=== PATIENT | female | born 1960 | race American Indian/Alaskan Native ===

== ENCOUNTER 2019-09-16 08:06 | Day surgery (SDC) | payer OTHER ==
[~2019-09-16 08:06] MED LIST: SODIUM CHLORIDE 0.9% 1000 ML 1,000 ML IV SCH
--- NOTE | 2019-09-16 08:47 | Anesthesia Day of Surgery ---
Anesthesia Day of Surgery - Day of Surgery Patient Examined: Yes Patient H&P Reviewed: Yes Patient is NPO: Yes Beta Blockers: Yes
--- NOTE | 2019-09-16 08:47 | Anesthesia Consultation ---
Anesthesia Consult and Med Hx Date of service: 09/16/19 - Airway Anesthetic Teeth Evaluation: Good ROM Head & Neck: Adequate Mental/Hyoid Distance: Adequate Mallampati Class: Class II Intubation Access Assessment: Probably Good - Pre-Operative Health Status ASA Pre-Surgery Classification: ASA3 Proposed Anesthetic Plan: MAC - Pulmonary Hx Smoking: No Hx Asthma: No Hx Respiratory Symptoms: No SOB: No COPD: No Home Oxygen Therapy: No Hx Pneumonia: No Hx Sleep Apnea: No - Cardiovascular System Hx Hypertension: Yes Hx Coronary Artery Disease: No Hx Heart Attack/AMI: No Hx Angina: No Hx Percutaneous Transluminal Coronary Angioplasty (PTCA): No Hx Cardia Arrhythmia: No Hx Pacemaker: No Hx Internal Defibrillator: No Hx Valvular Heart Disease: No Hx Heart Murmur: No Hx Peripheral Vascular Disease: No - Central Nervous System Hx Neuromuscular Disorder: No Hx Seizures: No CVA: No Hx Back Pain: No Hx Psychiatric Problems: Yes (anexity) - Gastrointestinal Hx Ulcer: No Hx Gastroesophageal Reflux Disease: No - Endocrine Hx Renal Disease: No Hx End Stage Renal Disease: No Hx Cirrhosis: No Hx Liver Disease: No Hx Insulin Dependent Diabetes: No Hx Non-Insulin Dependent Diabetes: Yes Hx Thyroid Disease: No Hx Hypothyroidism: No Hx Hyperthyroidism: No - Hematic Hx Anemia: No Hx Sickle Cell Disease: No - Other Systems Hx Alcohol Use: No Hx Substance Use: No Hx Cancer: No Hx Obesity: Yes
[2019-09-16] MEDS ORDERED: LIDOCAINE MPF (2%) 20 MG/1 ML VIAL 5 ML ONE (09:00)
--- NOTE | 2019-09-16 09:19 | History and Physical Report ---
HISTORY OF PRESENT ILLNESS: This is a 59-year-old female with a prior history of a gastric sleeve bypass done in 2018, who has an underlying history of diabetes mellitus type 2 as well as anxiety disorder, who has come for evaluation for a colonoscopy as part of colon polyp screening. She gives no prior history of any colonoscopy. ALLERGIES: No known allergies. SOCIAL HISTORY: Denies history of smoking or alcohol use. She has had her flu shots. No cardiac issues. PHYSICAL EXAMINATION: VITAL SIGNS: She is afebrile. Blood pressure 138/72, pulse is 79, height is 5 feet 4 inches, weight is 241 pounds. HEENT: Shows no JVD. LUNGS: Clear to auscultation. CARDIOVASCULAR: Normal. ABDOMEN: Soft. Bowel sounds present. NEUROLOGIC: She is alert and oriented. ASSESSMENT: Colon polyp screening, diabetes mellitus type 2, anxiety disorder, history of gastric sleeve done in 2018. PLAN: To do a colonoscopy at [facility] on 09/16/2018 and the patient is to use the [facility]. JOB# [id number] KJ/NTS
--- NOTE | 2019-09-16 09:41 | Procedure Note ---
Date of procedure: 09/16/19 Pre-op diagnosis: Colon Polyp Screening Post-op diagnosis: other (Solitary,Descending Colon Polyp (Snare Excised)/ Normal,Internal Hemorrhoid/ Normal, Ileal Mucosa) Procedure: Colonoscopy with Hot Snare Polypectomy Anesthesia: MAC Surgeon: GINNA SILVEIRA Estimated blood loss: minimal Pathology: list Specimen disposition: to lab Condition: stable Disposition: same day (Avoid aspirin and NSAID for 4 days; otherwise resume home medication. Follow up in 1 to 2weeks ([phone]).)
--- NOTE | 2019-09-16 09:45 | Operative Report ---
PROCEDURE: Colonoscopy. INDICATIONS: The patient is a 59-year-old -[place] female with an underlying history of diabetes mellitus type 2, hypertension, status post gastric sleeve in 2018. She underwent a colonoscopy as part of colon polyp screening. This is a first colonoscopy. DESCRIPTION OF PROCEDURE: Procedure was done after getting informed consent with MAC anesthesia. Initial rectal exam was unremarkable. Instrument was passed through the rectum onto the cecum, which was identified with ileocecal valve and the appendiceal orifice. Visualization was fair to good. The terminal ileum was intubated showed normal mucosa. The cecum was also examined on the retroverted view, which did not show any additional pathology. Cecum, ascending colon, transverse colon showed normal mucosa. In the proximal descending colon, there was a 10 mm sessile polyp that was removed by hot snare polypectomy and retrieved. The remaining part of the descending colon and sigmoid as well as the rectum showed normal mucosa. The rectum showed minor internal hemorrhoid on the retroverted view. There was minimal bleeding from the polypectomy site and no complications associated with the procedure. ASSESSMENT: Colon polyp screening, solitary descending colon polyp removed by a hot snare excision and retrieved. Minor internal hemorrhoid. Normal ileal mucosa. PLAN: To have the patient avoid aspirin and aspirin-related products for the next 4-5 days. We otherwise resume home medication and follow up in the office in 1-2 weeks' time. Procedure was done in the GI lab with assistance of the GI lab team, which included SHARON Reyes as well as Lisbet lockwood and with assistance of Anesthesia. JOB# [id number] HILL/JUDY
[2019-09-16 10:14] VITALS: BP 129/64
[2019-09-16] MEDS ORDERED: PROPOFOL 200 MG/20 ML VIAL IV ONE (10:26)
--- NOTE | 2019-09-16 14:39 | Post Anesthesia Evaluation ---
- Post Anesthesia Evaluation Patient Participated: Yes Airway Patent: Yes Stable Respiratory Function: Yes Nausea/Vomiting: Yes Temp > 96.8F: Yes Pain Manageable: Yes Adequeate Hydration: Yes Anesthesia Complications: No Block Receding Appropriately: Not Applicable Patient on Ventilator: No
== END 2019-09-16 08:07 | disposition home or self-care (01) ==
LOC: GIO 08:06
DX: Z12.11 Encounter for screening for malignant neoplasm of colon (principal); K64.8 Other hemorrhoids; D12.4 Benign neoplasm of descending colon; I10 Essential (primary) hypertension; E66.9 Obesity, unspecified; E11.9 Type 2 diabetes mellitus without complications; F41.9 Anxiety disorder, unspecified; Z98.890 Other specified postprocedural states; Z79.84 Long term (current) use of oral hypoglycemic drugs
CPT/HCPCS: 45385; 82962; 88305; J2704; J7030